=== PATIENT | male | born 1995 | race Caucasian/White ===

== ENCOUNTER 2021-09-15 13:05 | Outpatient (CLI) | payer OTHER ==
[~2021-09-15 13:05] MED LIST: Iopamidol 370 76% 100 ML VIAL ONE
== END 2021-09-15 13:06 | disposition home or self-care (01) ==
LOC: CSHCT 13:05
PROVIDERS: ATTEND Student in an Organized Health Care Education/Training Program
DX: R22.0 Localized swelling, mass and lump, head (principal); J34.89 Other specified disorders of nose and nasal sinuses
CPT/HCPCS: 70470; 70487; Q9967